=== PATIENT | male | born 1990 | race African-American/Black ===

== ENCOUNTER 2023-12-21 14:22 | Emergency (ER) | payer SELFPAY ==
[~2023-12-21] VITALS: Ht 172.7 cm; Wt 56.9 kg
[2023-12-21 14:23] VITALS: BP 146/79; TEMP 98.9; O2SAT 100
[2023-12-21] MEDS ORDERED: ACET-683 PO (14:27)
[2023-12-21] MEDS ORDERED: AMOX500C PO (15:39)
[2023-12-21] MEDS ORDERED: IBUP-1022 PO (15:39)
[2023-12-21] MEDS: AMOXICILLIN 500 MG CAP PO ONE (15:44)
[2023-12-21] MEDS: IBUPROFEN 600MG TAB PO ONE (15:45)
== END 2023-12-21 15:46 | disposition home or self-care (01) ==
LOC: M ED 14:22
DX: K04.7 Periapical abscess without sinus (principal); F17.200 Nicotine dependence, unspecified, uncomplicated

== ENCOUNTER 2024-04-12 00:22 | Emergency (ER) | payer SELFPAY ==
[~2024-04-12] VITALS: Ht 170.2 cm; Wt 52.9 kg
[~2024-04-12 00:22] MED LIST: ACET-683 PO; AMOX500C PO; IBUP-1022 PO
[2024-04-12 00:23] VITALS: BP 128/76; TEMP 99.4; O2SAT 98
== END 2024-04-12 04:30 | disposition left against medical advice (07) ==
LOC: M ED 00:22
DX: Z53.21 Procedure and treatment not carried out due to patient leaving prior to being seen by health care provider (principal)